=== PATIENT | female | born 1960 | race Caucasian/White ===

== ENCOUNTER 2019-01-28 12:14 | Emergency (ER) | payer OTHER ==
[2019-01-28] MEDS ORDERED: MORPHINE 2 MG/ML SYR ONE (12:51)
[2019-01-28] MEDS ORDERED: ONDANSETRON 4 MG/2 ML VIAL ONE (12:52)
[2019-01-28] MEDS ORDERED: NA CHLORIDE 0.9% 1,000 ML ONE (12:52)
[2019-01-28 13:12] LABS: Absolute Lymphocytes (CBC) 1.3 K/uL (0.7-4.9); Basophils % 0.5 % (0-1.3); Hematocrit 39.6 % (36.0-45.0); MPV 9.1 fL (7.6-11.3); RBC Red Blood Cell Count 4.27 M/uL (3.86-4.86)
[2019-01-28] MEDS ORDERED: DIPHENHYDRAMINE 50 MG/ML VIAL ONE (13:44)
--- NOTE | 2019-01-28 14:30 | RAD REPORT ---
EXAM DESCRIPTION: CTAbdomen Pelvis W Contrast - 01/28/2019 2:06 pm CLINICAL HISTORY: Abdominal pain. ABD PAIN COMPARISON: No comparisons TECHNIQUE: Biphasic CT imaging of the abdomen and pelvis was performed with 100 ml non-ionic IV cont rast. All CT scans are performed using dose optimization technique as appropriate and may include automated exposure control or mA/KV adjustment according to patient size. FINDINGS: The lung bases are clear.Cholecystectomy clips. The liver, spleen, pancreas, adrenal glands and left kidney are within normal limits. Mild right hydr onephrosis and hydroureter is present. The ureter changes caliber at the level of the right internal iliac artery. Calcifications are seen in this region however there felt to likely be related to ather osclerotic changes in internal iliac artery. No bowel obstruction, free air, free fluid or abscess. The appendix is normal. No evidence of signi ficant lymphadenopathy. No suspicious bony findings. IMPRESSION: Mild right hydronephrosis and hydroureter noted proximally without definitive obstructin g calculus seen. Several calcifications are seen in the region of the right internal iliac artery whi ch which are favored to be outside the ureter.
--- NOTE | 2019-01-28 15:10 | ER ---
Nurse's Notes [facility] Name: Anabel Lockett Age: 58 yrs Sex: Female : 1960 Arrival Date: 01/28/2019 Time: 12:15 Bed 26 Private MD: Yogesh Albarado Diagnosis: Other hydronephrosis;Hydroureter Presentation: 01/28 12:37 Presenting complaint: Patient states: right flank pain X 1 week, feels like a baseball iw is in there, also had pain to rib cage on Monday, denies urinary s/s. Transition of care: patient was not received from another setting of care. Onset of symptoms was January 21, 2019. Risk Assessment: Do you want to hurt yourself or someone else? Patient reports no desire to harm self or others. Initial Sepsis Screen: Does the patient meet any 2 criteria? No. Patient's initial sepsis screen is negative. Does the patient have a suspected source of infection? No. Patient's initial sepsis screen is negative. Care prior to arrival: None. 12:37 Method Of Arrival: Ambulatory iw 12:37 Acuity: ALICIA 3 iw Triage Assessment: 12:40 General: Appears in no apparent distress. uncomfortable, obese, Behavior is bp cooperative, appropriate for age, anxious. Pain: Complains of pain in right flank. EENT: No deficits noted. Neuro: No deficits noted. Cardiovascular: No deficits noted. Respiratory: No deficits noted. GI: No signs and/or symptoms were reported involving the gastrointestinal system. : No signs and/or symptoms were reported regarding the genitourinary system. Derm: No deficits noted. Musculoskeletal: No deficits noted. Historical: - Allergies: 12:39 Darvocet-N 100; iw 12:39 Iodine; iw 12:39 SHELLFISH; iw - PMHx: 12:39 Hyperlipidemia; iw - PSHx: 12:39 cyst; iw - Immunization history:: Adult Immunizations. - Social history:: Smoking status: . - Ebola Screening: : Patient negative for fever greater than or equal to 101.5 degrees Fahrenheit, and additional compatible Ebola Virus Disease symptoms Patient denies exposure to infectious person Patient denies travel to an Ebola-affected area in the 21 days before illness onset No symptoms or risks identified at this time. Screenin:31 Abuse screen: Denies threats or abuse. Denies injuries from another. Nutritional bp screening: No deficits noted. Tuberculosis screening: No symptoms or risk factors identified. Fall Risk None identified. Assessment: 12:40 General: SEE TRIAGE NOTE. bp 12:40 GI: Bowel sounds present X 4 quads. Abd is soft X 4 quads. bp 13:45 Reassessment: PT TO CT. bp 14:48 Reassessment: UOP PENDING, ALL OTHER ORDERS COMPLETED. bp 15:20 Reassessment: PT D/C HOME AMBULATORY WITH FAMILY, DX WITH HYDRONEPHROSIS AND bp HYDROURETER. Vital Signs: 12:40 BP 154 / 94; Pulse 78; Resp 16 S; Temp 98.0(TE); Pulse Ox 98% on R/A; Weight 92.99 kg; iw Height 5 ft. 6 in. (167.64 cm); Pain 3/10; 14:47 BP 137 / 77; Pulse 65; Resp 16; Pulse Ox 96% ; bp 15:19 BP 133 / 79; Pulse 66; Resp 16; Temp 98; Pulse Ox 99% ; rv 12:40 Body Mass Index 33.09 (92.99 kg, 167.64 cm) iw ED Course: 12:15 Patient arrived in ED. as 12:20 Yogesh Albarado MD is Private Physician. as 12:21 [facility] kb 12:21 Saeed Escobar MD is Attending Physician. kb 12:29 Conner Yin, [place] is Primary Nurse. bp 12:31 Patient has correct armband on for positive identification. Bed in low position. Call bp light in reach. Side rails up X2. 12:39 Triage completed. iw 12:40 Arm band placed on. iw 12:45 Inserted saline lock: 20 gauge in right forearm, using aseptic technique. Blood bp collected. 14:14 CT Abd/Pelvis - IV Contrast Only In Process Unspecified. EDMS 14:42 Warm blanket given. Verbal reassurance given. Diet: Patient given water. Pulse ox on. jp3 NIBP on. 15:21 No provider procedures requiring assistance completed. IV discontinued, intact, bp bleeding controlled, No redness/swelling at site. Pressure dressing applied. Administered Medications: 12:45 Drug: NS 0.9% 1000 ml Route: IV; Rate: 1000 ml; Site: right forearm; bp 15:19 Follow up: IV Status: Completed infusion; IV Intake: 1000ml rv 15:19 Follow up: IV Status: Completed infusion; IV Intake: 1000ml bp 12:45 Drug: Zofran 4 mg Route: IVP; Site: right forearm; bp 13:36 Follow up: Response: Nausea is decreased bp 12:45 Drug: morphine 2 mg Route: IVP; Site: right forearm; bp 13:36 Follow up: Response: Pain is decreased bp 15:18 Follow up: Response: RASS: Alert and Calm (0) rv 13:47 Drug: Benadryl 12.5 mg Route: IVP; Site: right forearm; bp 15:18 Follow up: Response: No adverse reaction rv Intake: 15:19 IV: 1000ml; Total: 1000ml. rv 15:19 IV: 1000ml; Total: 2000ml. bp Outcome: 15:09 Discharge ordered by . kb 15:21 Discharged to home ambulatory, with family. bp 15:21 Condition: stable 15:21 Discharge instructions given to patient, Instructed on discharge instructions, follow up and referral plans. medication usage, Demonstrated understanding of instructions, follow-up care, medications, Prescriptions given X 1. 15:22 Patient left the ED. bp Signatures: Dispatcher [employer] EDMS Mary Borrero, RAISSA-C [employer] SUPER[employer]ENT-Cindy Uribe Irene, RN [place] Connre Yin RN RN bp Fletcher Mueller RN RN rv Teddy Cardoza jp3
--- NOTE | 2019-01-28 15:11 | EDPHYS ---
Physician Documentation [facility] Name: Anabel Lockett Age: 58 yrs Sex: Female : 1960 Arrival Date: 01/28/2019 Time: 12:15 Bed 26 Private MD: Yogesh Albarado ED Physician Saeed Escobar HPI: 01/28 13:33 This 58 yrs old Female presents to ER via Ambulatory with complaints of kb Abdominal Pain. 13:33 The patient presents with abdominal pain right lower quadrant. kb 13:40 Onset: The symptoms/episode began/occurred 5 day(s) ago. The symptoms do not radiate. kb Associated signs and symptoms: Pertinent positives: nausea and vomiting. The symptoms are described as constant. Modifying factors: The symptoms are alleviated by nothing, the symptoms are aggravated by nothing. Severity of pain: At its worst the pain was moderate in the emergency department the pain is unchanged. The patient has not experienced similar symptoms in the past. The patient has not recently seen a physician. Historical: - Allergies: 12:39 Darvocet-N 100; iw 12:39 Iodine; iw 12:39 SHELLFISH; iw - PMHx: 12:39 Hyperlipidemia; iw - PSHx: 12:39 cyst; iw - Immunization history:: Adult Immunizations. - Social history:: Smoking status: . - Ebola Screening: : Patient negative for fever greater than or equal to 101.5 degrees Fahrenheit, and additional compatible Ebola Virus Disease symptoms Patient denies exposure to infectious person Patient denies travel to an Ebola-affected area in the 21 days before illness onset No symptoms or risks identified at this time. ROS: 13:30 Constitutional: Negative for fever, chills, and weight loss, Cardiovascular: Negative kb for chest pain, palpitations, and edema, Respiratory: Negative for shortness of breath, cough, wheezing, and pleuritic chest pain, Back: Negative for injury and pain, : Negative for injury, bleeding, discharge, and swelling, MS/Extremity: Negative for injury and deformity, Skin: Negative for injury, rash, and discoloration, Neuro: Negative for headache, weakness, numbness, tingling, and seizure. 13:30 Abdomen/GI: Positive for abdominal pain, nausea and vomiting, Negative for diarrhea, constipation, abdominal cramps, abdominal distension, anorexia. Exam: 13:33 Constitutional: This is a well developed, well nourished patient who is awake, alert, kb and in no acute distress. Head/Face: Normocephalic, atraumatic. Chest/axilla: Normal chest wall appearance and motion. Nontender with no deformity. No lesions are appreciated. Cardiovascular: Regular rate and rhythm with a normal S1 and S2. No gallops, murmurs, or rubs. Normal PMI, no JVD. No pulse deficits. Respiratory: Lungs have equal breath sounds bilaterally, clear to auscultation and percussion. No rales, rhonchi or wheezes noted. No increased work of breathing, no retractions or nasal flaring. Back: No spinal tenderness. No costovertebral tenderness. Full range of motion. Skin: Warm, dry with normal turgor. Normal color with no rashes, no lesions, and no evidence of cellulitis. MS/ Extremity: Pulses equal, no cyanosis. Neurovascular intact. Full, normal range of motion. Neuro: Awake and alert, GCS 15, oriented to person, place, time, and situation. Cranial nerves II-XII grossly intact. Motor strength 5/5 in all extremities. Sensory grossly intact. Cerebellar exam normal. Normal gait. 13:33 Abdomen/GI: Inspection: abdomen appears normal, Bowel sounds: normal, in all quadrants, Palpation: soft, in all quadrants, moderate abdominal tenderness, in the right lower quadrant. Vital Signs: 12:40 BP 154 / 94; Pulse 78; Resp 16 S; Temp 98.0(TE); Pulse Ox 98% on R/A; Weight 92.99 kg; iw Height 5 ft. 6 in. (167.64 cm); Pain 3/10; 14:47 BP 137 / 77; Pulse 65; Resp 16; Pulse Ox 96% ; bp 15:19 BP 133 / 79; Pulse 66; Resp 16; Temp 98; Pulse Ox 99% ; rv 12:40 Body Mass Index 33.09 (92.99 kg, 167.64 cm) iw MDM: 12:22 Patient medically screened. kb 13:25 ED course: Discussed iodine allergy with pt. Pt reports the contrast made her feel hot kb all over and nauseous in the past. Denies shortness of breath, rash or itching. States she is ok with being premedicated with benadyl prior to CT and having the injected contrast. . 13:30 Data reviewed: vital signs, nurses notes. Data interpreted: Pulse oximetry: on room air kb is 98 %. Interpretation: normal. 15:08 Counseling: I had a detailed discussion with the patient and/or guardian regarding: the kb historical points, exam findings, and any diagnostic results supporting the discharge/admit diagnosis, lab results, radiology results, the need for outpatient follow up, a family practitioner, a urologist, to return to the emergency department if symptoms worsen or persist or if there are any questions or concerns that arise at home. 01/28 12:30 Order name: Basic Metabolic Panel kb 01/28 12:30 Order name: CBC with Diff; Complete Time: 13:15 kb 01/28 12:30 Order name: CT Abd/Pelvis - IV Contrast Only; Complete Time: 14:33 kb 01/28 15:16 Order name: Urine Dipstick--Ancillary (enter results) bd 01/28 15:16 Order name: Urine --Ancillary (enter results) bd 01/28 12:30 Order name: IV Saline Lock; Complete Time: 13:09 kb 01/28 12:30 Order name: Labs collected and sent; Complete Time: 13:09 kb 01/28 14:32 Order name: Urine Dipstick-Ancillary (obtain specimen); Complete Time: 15:02 kb Administered Medications: 12:45 Drug: NS 0.9% 1000 ml Route: IV; Rate: 1000 ml; Site: right forearm; bp 15:19 Follow up: IV Status: Completed infusion; IV Intake: 1000ml rv 15:19 Follow up: IV Status: Completed infusion; IV Intake: 1000ml bp 12:45 Drug: Zofran 4 mg Route: IVP; Site: right forearm; bp 13:36 Follow up: Response: Nausea is decreased bp 12:45 Drug: morphine 2 mg Route: IVP; Site: right forearm; bp 13:36 Follow up: Response: Pain is decreased bp 15:18 Follow up: Response: RASS: Alert and Calm (0) rv 13:47 Drug: Benadryl 12.5 mg Route: IVP; Site: right forearm; bp 15:18 Follow up: Response: No adverse reaction rv Disposition: 01/28/19 15:09 Discharged to Home. Impression: Other hydronephrosis, Hydroureter. - Condition is Stable. - Discharge Instructions: Hydronephrosis. - Prescriptions for Diclofenac Sodium 75 mg Oral Tablet, Delayed Release (E.C.) - take 1 tablet by ORAL route 2 times per day As needed; 30 tablet. - Medication Reconciliation Form, Thank You Letter, Antibiotic Education, Prescription Opioid Use form. - Follow up: Emergency Department; When: As needed; Reason: Worsening of condition. Follow up: Private Physician; When: 2 - 3 days; Reason: Recheck today's complaints, Continuance of care, Re-evaluation by your physician. Addendum: 01/29/2019 20:35 Co-signature as Attending Physician, Saeed Escobar MD I agree with the assessment and c quiroga plan of care. Signatures: Dispatcher [employer] EDMary Mobley, RAISSA-Vanesa HAJI-Saeed Aguilera MD MD cha Williams, Irene, RN RN iw Conner Yin RN RN Fletcher Fritz RN rv Corrections: (The following items were deleted from the chart) 01/28 15:22 15:09 01/28/2019 15:09 Discharged to Home. Impression: Other hydronephrosis; bp Hydroureter. Condition is Stable. Forms are Medication Reconciliation Form, Thank You Letter, Antibiotic Education, Prescription Opioid Use. Follow up: Emergency Department; When: As needed; Reason: Worsening of condition. Follow up: Private Physician; When: 2 - 3 days; Reason: Recheck today's complaints, Continuance of care, Re-evaluation by your physician. kb
[2019-01-28 15:42] LABS: Urine Blood NEGATIVE (NEG); Urine Glucose NEGATIVE (NEG); Urine Protein NEGATIVE (NEG)
== END 2019-01-28 15:22 | disposition home or self-care (01) ==
LOC: ER 12:14
DX: N13.39 Other hydronephrosis (principal); N13.4 Hydroureter; E78.5 Hyperlipidemia, unspecified; Z88.5 Allergy status to narcotic agent; Z91.013 Allergy to seafood; Z91.048 Other nonmedicinal substance allergy status
CPT/HCPCS: 96361; 85025; 80048; 36415; 81025; 81003; 74177; 96375; 96374; 99284; Q9967; J2270; J7030; J2405